=== PATIENT | male | born 1970 | race Caucasian/White ===

== ENCOUNTER 2020-09-07 12:13 | Inpatient (IN) | payer BC, OTHER ==
[~2020-09-07] VITALS: Ht 188 cm; Wt 149.2 kg
[2020-09-07 13:15] LABS: HEMOGLOBIN 15.8 gm/dl (14.0-17.5); RED BLOOD COUNT 5.07 M/UL (4.20-5.50); WHITE BLOOD COUNT 12.1 K/UL (4.5-11.0)
[2020-09-07 13:50] LABS: BUN/CREATININE RATIO 17 (0-10)
[2020-09-08 09:19] LABS: HEMOGLOBIN 15.3 gm/dl (14.0-17.5); RED BLOOD COUNT 4.97 M/UL (4.20-5.50); WHITE BLOOD COUNT 15.8 K/UL (4.5-11.0)
[2020-09-08 09:32] LABS: BUN/CREATININE RATIO 29 (0-10)
[2020-09-08] MEDS ORDERED: LISINOPRIL20 MG PO (10:49)
[2020-09-08] MEDS ORDERED: METFORMIN HCL1000 MG PO (10:50)
[2020-09-08] MEDS ORDERED: TENORMIN 50 MG50 MG PO (10:50)
[2020-09-08] MEDS ORDERED: IBUPROFEN800 MG PO (10:51)
[2020-09-08] MEDS ORDERED: MEDROL DOSEPAK 24 MG PO (10:51)
[2020-09-08] MEDS ORDERED: ALBUTEROL2.5 MG/3 M INH (10:51)
[2020-09-08] MEDS ORDERED: DOXYCYCLINE HY100 MG PO (10:52)
[2020-09-09 05:14] LABS: RED BLOOD COUNT 4.89 M/UL (4.20-5.50); WHITE BLOOD COUNT 13.5 K/UL (4.5-11.0)
[2020-09-09 05:34] LABS: BUN/CREATININE RATIO 35 (0-10)
[2020-09-10 05:04] LABS: HEMOGLOBIN 14.5 gm/dl (14.0-17.5); RED BLOOD COUNT 4.56 M/UL (4.20-5.50)
[2020-09-10 05:05] LABS: WHITE BLOOD COUNT 8.7 K/UL (4.5-11.0)
[2020-09-10 05:45] LABS: BUN/CREATININE RATIO 27 (0-10)
[2020-09-11 05:22] LABS: HEMOGLOBIN 15.1 gm/dl (14.0-17.5); RED BLOOD COUNT 4.76 M/UL (4.20-5.50); WHITE BLOOD COUNT 9.8 K/UL (4.5-11.0)
[2020-09-11 05:44] LABS: BUN/CREATININE RATIO 24 (0-10)
[2020-09-12 04:53] LABS: HEMOGLOBIN 15.1 gm/dl (14.0-17.5); RED BLOOD COUNT 4.78 M/UL (4.20-5.50)
[2020-09-12 05:09] LABS: WHITE BLOOD COUNT 13.3 K/UL (4.5-11.0)
[2020-09-12 05:11] LABS: BUN/CREATININE RATIO 24 (0-10)
[2020-09-13 04:49] LABS: HEMOGLOBIN 14.8 gm/dl (14.0-17.5); RED BLOOD COUNT 4.73 M/UL (4.20-5.50); WHITE BLOOD COUNT 14.1 K/UL (4.5-11.0)
[2020-09-13 05:12] LABS: BUN/CREATININE RATIO 25 (0-10)
[2020-09-14 07:11] LABS: HEMOGLOBIN 14.9 gm/dl (14.0-17.5); RED BLOOD COUNT 4.85 M/UL (4.20-5.50)
[2020-09-14 07:34] LABS: BUN/CREATININE RATIO 32 (0-10)
[2020-09-15 05:13] LABS: HEMOGLOBIN 14.1 gm/dl (14.0-17.5); RED BLOOD COUNT 4.53 M/UL (4.20-5.50); WHITE BLOOD COUNT 14.5 K/UL (4.5-11.0)
[2020-09-15 05:37] LABS: BUN/CREATININE RATIO 32 (0-10)
[2020-09-16 05:44] LABS: HEMOGLOBIN 13.8 gm/dl (14.0-17.5); RED BLOOD COUNT 4.54 M/UL (4.20-5.50); WHITE BLOOD COUNT 15.2 K/UL (4.5-11.0)
[2020-09-16 06:12] LABS: BUN/CREATININE RATIO 30 (0-10)
[2020-09-17 05:21] LABS: HEMOGLOBIN 13.4 gm/dl (14.0-17.5); RED BLOOD COUNT 4.47 M/UL (4.20-5.50); WHITE BLOOD COUNT 17.6 K/UL (4.5-11.0)
[2020-09-17 05:25] LABS: BUN/CREATININE RATIO 25 (0-10)
[2020-09-18 05:36] LABS: HEMOGLOBIN 13.3 gm/dl (14.0-17.5); RED BLOOD COUNT 4.39 M/UL (4.20-5.50); WHITE BLOOD COUNT 14.7 K/UL (4.5-11.0)
[2020-09-18 06:03] LABS: BUN/CREATININE RATIO 29 (0-10)
[2020-09-19 07:50] LABS: HEMOGLOBIN 14.2 gm/dl (14.0-17.5); WHITE BLOOD COUNT 15.3 K/UL (4.5-11.0)
[2020-09-19 07:53] LABS: RED BLOOD COUNT 4.89 M/UL (4.20-5.50)
[2020-09-19 08:21] LABS: BUN/CREATININE RATIO 27 (0-10)
[2020-09-19] MEDS ORDERED: LEVOFLOXACIN500 MG PO (11:43)
[2020-09-19] MEDS ORDERED: DECADRON6 MG PO (11:43)
[2020-09-19] MEDS ORDERED: ELIQUIS5 MG PO (12:39)
== END 2020-09-19 13:48 | disposition home or self-care (01) | DRG 871 ==
LOC: ER1 12:13 → 2 EAST 09-08 08:40 → CDU 09-08 08:40 → 2 EAST 09-08 10:54 → MED SURG 4 09-18 14:43
PROVIDERS: Internal Medicine; Internal Medicine Pulmonary Disease; Student in an Organized Health Care Education/Training Program; ADMIT Family Medicine
PROC: 8E0ZXY6 Isolation (ICD-10-PCS; principal; 2020-09-08)
PROC: XW033E5 Introduction of Remdesivir Anti-infective into Peripheral Vein, Percutaneous Approach, New Technology Group 5 (ICD-10-PCS; 2020-09-08)
PROC: 5A0955A Assistance with Respiratory Ventilation, Greater than 96 Consecutive Hours, High Flow/Velocity Cannula (ICD-10-PCS; 2020-09-08)
PROC: XW13325 Transfusion of Convalescent Plasma (Nonautologous) into Peripheral Vein, Percutaneous Approach, New Technology Group 5 (ICD-10-PCS; 2020-09-09)
DX: A41.89 Other specified sepsis (principal); U07.1 COVID-19; J12.82 Pneumonia due to coronavirus disease 2019; J80 Acute respiratory distress syndrome; E87.2 Acidosis; N17.9 Acute kidney failure, unspecified; E87.1 Hypo-osmolality and hyponatremia; T38.0X5A Adverse effect of glucocorticoids and synthetic analogues, initial encounter; E78.5 Hyperlipidemia, unspecified; E11.65 Type 2 diabetes mellitus with hyperglycemia; G47.33 Obstructive sleep apnea (adult) (pediatric); E66.01 Morbid (severe) obesity due to excess calories; I12.9 Hypertensive chronic kidney disease with stage 1 through stage 4 chronic kidney disease, or unspecified chronic kidney disease; E11.22 Type 2 diabetes mellitus with diabetic chronic kidney disease; N18.2 Chronic kidney disease, stage 2 (mild); Z68.32 Body mass index [BMI] 32.0-32.9, adult; Z79.01 Long term (current) use of anticoagulants; Z79.84 Long term (current) use of oral hypoglycemic drugs; Z79.899 Other long term (current) drug therapy
CPT/HCPCS: 0240U; 36415; 36430; 36600; 71045; 80048; 80053; 80202; 81001; 82550; 82553; 82728; 82803; 82962; 83605; 83615; 83735; 83880; 84100; 84484; 85025; 85379; 86140; 86900; 86901; 86927; 87040; 87070; 87081; 87086; 87205; 94640; 94660; 94664; 94760; 96365; 96366; 96367; 96368; 96375; 99285; C9113; J0456; J0696; J1100; J1205; J1650; J1940; J1956; J3370; J7030; J7050; J7070; Q9967

== ENCOUNTER → 2020-10-05 | Outpatient (CLI) | payer BC, OTHER ==
[~2020-10-05] MED LIST: ALBUTEROL2.5 MG/3 M INH; DECADRON6 MG PO; DOXYCYCLINE HY100 MG PO; ELIQUIS5 MG PO; IBUPROFEN800 MG PO; LEVOFLOXACIN500 MG PO; LISINOPRIL20 MG PO; MEDROL DOSEPAK 24 MG PO; METFORMIN HCL1000 MG PO; TENORMIN 50 MG50 MG PO
== END ==
LOC: RAD 13:57 → LAB 13:57
DX: U07.1 COVID-19 (principal); R91.8 Other nonspecific abnormal finding of lung field
CPT/HCPCS: 71046

== ENCOUNTER → 2020-10-17 | Outpatient (CLI) | payer BC, OTHER | LOC: EXRD 11:04 | DX: J18.9 Pneumonia, unspecified organism (principal); R91.8 Other nonspecific abnormal finding of lung field | CPT/HCPCS: 71046 ==

== ENCOUNTER → 2021-05-02 | Outpatient (CLI) | payer BC, OTHER | LOC: EXRD 10:53 | DX: Z09 Encounter for follow-up examination after completed treatment for conditions other than malignant neoplasm (principal); Z86.16 Personal history of COVID-19; R91.8 Other nonspecific abnormal finding of lung field | CPT/HCPCS: 71046 ==